=== PATIENT | male | born 1990 | race Caucasian/White ===

== ENCOUNTER 2021-03-31 00:48 | Emergency (ER) | payer SELFPAY ==
[2021-03-31] MEDS ORDERED: Ibuprofen 600 MG Tab PO ONE (01:33)
[2021-03-31] MEDS ORDERED: traMADol 50 MG Tab PO ONE (01:33)
[2021-03-31] MEDS ORDERED: Cephalexin 500 MG Cap PO ONE (01:33)
--- NOTE | 2021-03-31 01:38 | EDM.PDOC ---
ED HPI GENERAL MEDICAL PROBLEM - General Chief Complaint: ENT Problem Stated Complaint: TOOTH IS BROKEN Time Seen by Provider: 03/31/21 01:21 - History of Present Illness INITIAL COMMENTS - FREE TEXT/NARRATIVE: HISTORY AND PHYSICAL: History of present illness: 31-year-old who presents ER today secondary to left upper dental pain that occurred approximately 2 weeks ago. Patient reports he was eating food and felt his tooth crack. Patient is from [place] will not be able to see dentist for another 2 weeks. Patient reports he did not seek any medical attention for the last 2 weeks but over the last 1 to 2 days the pain is much worse he has noticed increased swelling. Patient has any recent fevers, shakes, chills, nausea, vomiting, diarrhea, dysuria, frequency, urgency, chest pain, shortness of breath, difficulty swallowing, difficulty eating or opening his mouth. Review of systems: As per history of present illness and below otherwise all systems reviewed and negative. Past medical history: As per history of present illness and as reviewed below otherwise noncontributory. Surgical history: As per history of present illness and as reviewed below otherwise noncontributory. Social history: No reported history of drug abuse. Family history: As per history of present illness and as reviewed below otherwise noncontributory. Physical exam: This patient was seen and evaluated during the 2019 SARS-CoV-2 novel coronavirus pandemic period. Community viral transmission is ongoing at time of this encounter and the emergency department is operating under pandemic response procedures. Constitutional: Patient is oriented to person, place, and time. Appears well- developed and well-nourished. No distress. HEENT: Moist mucous membranes Head: Normocephalic and atraumatic Eyes: Right eye exhibits no discharge. Left eye exhibits no discharge. No scleral icterus Neck: Normal range of motion. No tracheal deviation present. Cardiovascular: Normal rate and regular rhythm. Pulmonary: Effort normal, no respiratory distress. Abdominal: No distention Musculoskeletal: Normal range of motion Neurologic: Alert and oriented to person, place and time. Skin: [place], warm and dry. Psychiatric: Normal mood and affect. Behavior is normal. Judgment and thought content normal. Nursing note and vital signs have been reviewed Patient's ER physical exam is significant for tenderness to palpation to his left upper molars with swelling around the gumline. No purulent drainage. No trismus. No significant swelling noted on external exam. Diagnostics: [] Therapeutics: [] Assessment and plan: 31-year-old who presents ER today with a dental infection patient will get started on Keflex, ibuprofen and Ultram to assist him with his pain. Patient is to follow-up with dentist as soon as possible. Reassessment at the time of disposition demonstrates that the patient is in no acute distress. The patient has remained stable throughout the entire ED visit and is without objective evidence for acute process requiring urgent intervention or hospitalization. The patient is stable for discharge, counseling is provided as documented above, discussed symptomatic treatment and specific conditions for return. I have spoken with the patient/caregiver and discussed todays findings, in addition to providing specific details for the plan of care. Questions are answered and there is agreement with the plan. Definitive disposition and diagnosis as appropriate pending reevaluation and review of above. left upper mouth Pain Score (Numeric/FACES): 7 - Related Data Allergies Allergy/AdvReac Type Severity Reaction Status Date / Time No Known Allergies Allergy Verified 03/31/21 00:57 Home Meds: Home Meds . [No Known Home Meds] 03/31/21 [History] Past Medical History - Past Health History Medical/Surgical History: Denies Medical/Surgical History - Infectious Disease History Infectious Disease History: Reports: None Social & Family History - Family History Family Medical History: No Pertinent Family History - Tobacco Use Tobacco Use Status *Q: Current Every Day Tobacco User Years of Tobacco use: 15 Packs/Tins Daily: 1 - Caffeine Use Caffeine Use: Reports: Energy Drinks - Recreational Drug Use Recreational Drug Use: No ED ROS GENERAL - Review of Systems Review Of Systems: See Below ED EXAM, GENERAL - Physical Exam Exam: See Below Course - Vital Signs Last Recorded V/S: Last Vital Signs Temp 97.8 F 03/31/21 00:57 Pulse 66 03/31/21 00:57 Resp 18 03/31/21 00:57 BP 110/65 03/31/21 00:57 Pulse Ox 98 03/31/21 00:57 - Orders/Labs/Meds Meds: Medications Discontinued Medications Generic Name Dose Route Start Last Admin Trade Name Freq PRN Reason Stop Dose Admin Cephalexin 500 mg 03/31/21 01:33 Cephalexin 500 Mg Cap PO 03/31/21 01:34 ONETIME ONE Ibuprofen 600 mg 03/31/21 01:33 Ibuprofen 600 Mg Tab PO 03/31/21 01:34 ONETIME ONE Tramadol HCl 50 mg 03/31/21 01:33 Tramadol 50 Mg Tab PO 03/31/21 01:34 ONETIME ONE Departure - Departure Time of Disposition: 01:36 Disposition: Home, Self-Care 01 Condition: Good Clinical Impression: Dental abscess Fracture of tooth Qualifiers: Encounter type: initial encounter Fracture type: closed Qualified Code(s): S02.5XXA - Fracture of tooth (traumatic), initial encounter for closed fracture - Discharge Information Instructions: Dental Abscess, [id number], Tooth Injuries, [id number] Referrals: PCP,None [Primary Care Provider] - Additional Instructions: Your seen and evaluated in the ER today secondary to a fractured tooth with likely dental abscess from it. You will be given a prescription for ibuprofen, Ultram for pain as well as Keflex as an antibiotic. Please try to see a dentist soon as possible. The following information is given to patients seen in the emergency department who are being discharged to home. This information is to outline your options for follow-up care. We provide all patients seen in our emergency department with a follow-up referral. The need for follow-up, as well as the timing and circumstances, are variable depending upon the specifics of your emergency department visit. If you don't have a primary care physician on staff, we will provide you with a referral. We always advise you to contact your personal physician following an emergency department visit to inform them of the circumstance of the visit and for follow-up with them and/or the need for any referrals to a consulting specialist. The emergency department will also refer you to a specialist when appropriate. This referral assures that you have the opportunity for follow-up care with a specialist. All of these measure are taken in an effort to provide you with opt imal care, which includes your follow-up. Under all circumstances we always encourage you to contact your private physician who remains a resource for coordinating your care. When calling for follow-up care, please make the office aware that this follow-up is from your recent emergency room visit. If for any reason you are refused follow-up, please contact the [facility] at and asked to speak to the emergency department charge nurse. [facility] [address] [place] [id number] [facility] [address] [place] [id number] Sepsis Event Note (ED) - Focused Exam Vital Signs: Vital Signs Temp Pulse Resp BP Pulse Ox 03/31/21 00:57 97.8 F 66 18 110/65 98
== END 2021-03-31 02:01 | disposition home or self-care (01) ==
LOC: MW.ED 00:48
DX: K03.81 Cracked tooth (principal); K04.7 Periapical abscess without sinus; Z72.0 Tobacco use
CPT/HCPCS: 99283; A9270